=== PATIENT | male | born 1965 | race Caucasian/White ===

== ENCOUNTER 2018-09-15 17:25 | Emergency (ER) | payer MEDICAID ==
[~2018-09-15] VITALS: Ht 190.5 cm; Wt 117.4 kg
[2018-09-15 17:32] VITALS: Ht 190.5 cm; Wt 117.4 kg
[2018-09-15] MEDS ORDERED: ONDANSETRON (ODT) 4 MG TAB ODT STA (20:20)
[2018-09-15] MEDS ORDERED: morphine 4 MG/ML VIAL IM STA (20:20)
[2018-09-15] MEDS ORDERED: HYDROCODONE/APAP (10/325) TAB PO ONE (20:30)
[2018-09-15] MEDS ORDERED: TRAM50TA2 PO (21:35)
[2018-09-15] MEDS ORDERED: AMOX1TAB9 PO (21:35)
[2018-09-15 21:56] VITALS: BP 145/84; PULSE 61; RESP 20
--- NOTE | 2018-09-16 02:00 | ERD ---
ER Documentation Chief Complaint Chief Complaint L lower dental pain, states taking Amoxicillin and Ibuprofen with no relief HPI History of Present Illness: Patient coming in today with complaint of dental pain. Patient reports going to dentist yesterday and given amoxicillin and ibuprofen. Patient reports compliance with medications as prescribed, with no relief of pain. Reports pain is worsened. Patient denies systemic signs of infection including fever, chills, altered mental status. At home pharmacological/nonpharmacological treatment for symptoms: Patient reports using ice cold water to help decrease pain Denies social concerns; Denies recent foreign travel ROS All systems reviewed and are negative except as per history of present illness. Medications Home Meds Active Scripts Tramadol HCl (Tramadol HCl) 50 Mg Tablet, 50 MG PO Q6 PRN for PAIN LEVEL 6-10, #8 TAB Prov:MARY ANN ARMENDARIZ NP 09/15/18 Amoxicillin/Potassium Clav (Amox-Clav 500-125 mg Tablet) 500-125 mg Tab, 1 TAB PO Q8 for DENTAL PAIN ANTIBIOTICS for 10 Days, #30 TAB Prov:MARY ANN ARMENDARIZ NP 09/15/18 Allergies Allergies: Coded Allergies: No Known Allergy (Unverified , 09/15/18) PMhx/Soc Medical and Surgical Hx: pt denies Medical Hx, pt denies Surgical Hx Hx Alcohol Use: No Hx Substance Use: No Hx Tobacco Use: No Smoking Status: Never smoker FmHx Family History: No diabetes Physical Exam Vitals Vital Signs Date Temp Pulse Resp B/P (MAP) Pulse Ox O2 O2 Flow FiO2 Time Delivery Rate 09/15/18 61 20 145/84 100 Room Air 21:56 (104) 09/15/18 98.5 61 18 162/87 97 17:32 (112) Physical Exam Const: No acute distress Head: Atraumatic Eyes: Normal Conjunctiva ENT: Normal External Ears, Nose and Mouth. Tenderness to palpation to tooth #17, no fluctuance to gumline. Neck: Full range of motion. No meningismus. Resp: Clear to auscultation bilaterally Cardio: Regular rate and rhythm, no murmurs Abd: Soft, non tender, non distended. Normal bowel sounds Skin: No petechiae or rashes Back: No midline or flank tenderness Ext: No cyanosis, or edema Neur: Awake and alert Psych: Normal Mood and Affect Results 24 hrs Current Medications Medications Dose Sig/Freddie Start Time Status Last (Trade) Ordered Route PRN Stop Time Admin Dose Reason Admin 1 tab ONCE ONCE 09/15/18 DC 09/15/18 Acetaminophen PO 20:30 20:30 / 09/15/18 20:31 Hydrocodone Bitart ([place] ()) Morphine 4 mg ONCE STAT 09/15/18 DC 09/15/18 Sulfate IM 20:20 20:31 (morphine) 09/15/18 20:22 Ondansetron 4 mg ONCE STAT 09/15/18 DC 09/15/18 HCl (Zofran ODT 20:20 20:30 Odt) 09/15/18 20:22 Procedures/MDM ED course includes a thorough examination and history. Medications: [place] and IM morphine (morphine given due to severe leg pain, patient with grimacing and blood pressure) Imaging: ----- Labs:----- Low suspicion for life-threatening medical emergency. Low suspicion for HEENT or dental emergency that requires hospitalization or immediate intervention. Otherwise healthy patient presenting with constellation of symptoms likely representing uncomplicated dental pain possibly secondary to infection as characterized by history, physical exam findings. Patient hemodynamically stable, afebrile. No respiratory distress, otherwise relatively well appearing and nontoxic. Patient educated on diagnoses, prescriptions, follow-up care, return precautions. Strict return precautions given for worsening condition; questions answered discharge. Patient educated on changing antibiotics from amoxicillin to Augmentin. Patient verbalizes understanding to DC amoxicillin. Patient verbalized understanding to continue ibuprofen for pain/inflammation and to take tramadol as needed for moderate to severe pain. Patient reports decrease in pain after medication administration during ER visit; pain was 10/10 currently 5/10. Disposition for discharge with followup in 2 days with PCP/clinic. Departure Diagnosis: Primary Impression: Toothache Condition: Stable Patient Instructions: Dental Pain Referrals: COMMUNITY CLINICS YOU HAVE RECEIVED A MEDICAL SCREENING EXAM AND THE RESULTS INDICATE THAT YOU DO NOT HAVE A CONDITION THAT REQUIRES URGENT TREATMENT IN THE EMERGENCY DEPARTMENT. FURTHER EVALUATION AND TREATMENT OF YOUR CONDITION CAN WAIT UNTIL YOU ARE SEEN IN YOUR DOCTORS OFFICE WITHIN THE NEXT 1-2 DAYS. IT IS YOUR RESPONSIBILITY TO MAKE AN APPOINTMENT FOR FOLOW-UP CARE. IF YOU HAVE A PRIMARY DOCTOR --you should call your primary doctor and schedule an appointment IF YOU DO NOT HAVE A PRIMARY DOCTOR YOU CAN CALL OUR PHYSICIAN REFERRAL HOTLINE AT IF YOU CAN NOT AFFORD TO SEE A PHYSICIAN YOU CAN CHOSE FROM THE FOLLOWING [facility] [address] [place] [address] [facility] [place] [address] [facility] [address] [facility] [address] [facility]. [facility]. [address] [facility] [facility] YOU HAVE RECEIVED A MEDICAL SCREENING EXAM AND THE RESULTS INDICATE THAT YOU DO NOT HAVE A CONDITION THAT REQUIRES URGENT TREATMENT IN THE EMERGENCY DEPARTMENT. FURTHER EVALUATION AND TREATMENT OF YOUR CONDITION CAN WAIT UNTIL YOU ARE SEEN IN YOUR DOCTORS OFFICE WITHIN THE NEXT 1-2 DAYS. IT IS YOUR RESPONSIBILITY TO MAKE AN APPOINTMENT FOR FOLOW-UP CARE. IF YOU HAVE A PRIMARY DOCTOR --you should call your primary doctor and schedule and appointment IF YOU DO NOT HAVE A PRIMARY DOCTOR YOU CAN CALL OUR PHYSICIAN REFERRAL HOTLINE AT . IF YOU CAN NOT AFFORD TO SEE A PHYSICIAN YOU CAN CHOSE FROM THE FOLLOWING [facility] INSTITUTIONS: [facility] [address] [place] [address] [facility] [address] [place] [address] [facility] [address] [place] [address] [facility] DENT[facility] ([facility] walk in clinic) Additional Instructions: Thank you very much for allowing us to participate in your care. Your health and safety is our top priority at [facility]. Call your primary care doctor/DENTIST TOMORROW for an appointment during the next 2-4 days and bring all the information and medications prescribed. Have prescriptions filled and follow precisely the directions on the label. If the symptoms get worse and your provider is unavailable, return to the Emergency Department immediately. MARY ANN ARMENDARIZ NP Sep 16, 2018 02:00
== END 2018-09-15 22:00 | disposition home or self-care (01) ==
LOC: FTE 17:25
DX: K08.89 Other specified disorders of teeth and supporting structures (principal)
CPT/HCPCS: 96372; J2270; Z7502; Z7610

== ENCOUNTER 2019-02-19 22:36 | Inpatient (IN) | payer MEDICAID ==
[~2019-02-19] VITALS: Ht 185.4 cm; Wt 117.5 kg
[~2019-02-19 22:36] MED LIST: AMOX1TAB9 PO; ATOR10TA65 PO; BEN25 PO; CEPH-443 PO; PRED20TA PO; SULF1TAB31 PO; TRAM50TA2 PO; Work Note
[2019-02-19 22:49] VITALS: Ht 185.4 cm; Wt 117.5 kg
[2019-02-20] MEDS ORDERED: LEVOFLOXACIN 750MG/D5W (PMX) 150 ML IVPB ONE (03:00)
[2019-02-20] MEDS ORDERED: NACL 0.9% 3 ML SYG IV SCH (03:00)
[2019-02-20] MEDS ORDERED: ONDANSETRON 4 MG INJ IV PRN (03:00)
[2019-02-20] MEDS ORDERED: VANCOMYCIN IV PER PHARMACY XX SCH (03:00)
[2019-02-20] MEDS ORDERED: VANCOMYCIN 1 GM (PMX) 250 ML IVPB ONE (03:00)
[2019-02-20] MEDS ORDERED: ACETAMINOPHEN 325 MG TAB PO PRN (03:00)
[2019-02-20] MEDS ORDERED: DOCUSATE SODIUM 100 MG CAP PO PRN (03:00)
[2019-02-20] MEDS ORDERED: BISACODYL (EC) 5 MG TAB PO PRN (03:00)
[2019-02-20] MEDS ORDERED: HYDROCODONE/APAP (5/325) TAB PO PRN (03:00)
[2019-02-20 03:50] VITALS: BP 127/78; PULSE 60; RESP 18
[2019-02-20] MEDS ORDERED: VANCOMYCIN HCL 2 GM in SOD CHLORIDE 0.9% 500 ML IVPB SCH (04:00)
[2019-02-20 08:00] VITALS: BP 124/79; PULSE 60; RESP 20
[2019-02-20] MEDS: ENOXAPARIN 40 MG/0.4 ML SYG SC SCH (08:43)
[2019-02-20 14:00] VITALS: BP 114/68; PULSE 59; RESP 16
[2019-02-20] MEDS: VANCOMYCIN 1.5 GM/NS 250 ML 250 ML IVPB SCH (16:58)
[2019-02-20] MEDS ORDERED: ATORVASTATIN 10 MG TAB ONE (19:33)
[2019-02-20 20:34] VITALS: BP 117/72; PULSE 52; RESP 18
[2019-02-20] MEDS: ATORVASTATIN 10 MG TAB PO SCH (20:51)
[2019-02-21 02:39] VITALS: BP 116/70; PULSE 53; RESP 18
[2019-02-21] MEDS: VANCOMYCIN 1.5 GM/NS 250 ML 250 ML IVPB SCH ×2 (04:04→17:00)
[2019-02-21 08:00] VITALS: BP 110/62; PULSE 84; RESP 20
[2019-02-21] MEDS: DOCUSATE SODIUM 100 MG CAP PO SCH ×2 (08:34→21:21)
[2019-02-21] MEDS: ENOXAPARIN 40 MG/0.4 ML SYG SC SCH (08:34)
[2019-02-21 14:00] VITALS: BP 108/66; PULSE 96; RESP 20
[2019-02-21 19:51] VITALS: BP 103/64; PULSE 52; RESP 18
[2019-02-21] MEDS: ATORVASTATIN 10 MG TAB PO SCH (21:21)
[2019-02-22 02:02] VITALS: BP 103/65; PULSE 53; RESP 20
[2019-02-22] MEDS ORDERED: VANCOMYCIN HCL 1.75 GM in SOD CHLORIDE 0.9% 500 ML IVPB SCH (05:00)
[2019-02-22 08:00] VITALS: BP 107/67; PULSE 55; RESP 20
[2019-02-22] MEDS: DOCUSATE SODIUM 100 MG CAP PO SCH (08:26)
[2019-02-22] MEDS: ENOXAPARIN 40 MG/0.4 ML SYG SC SCH (08:27)
[2019-02-22 14:00] VITALS: BP_SYST 110; BP_SYST 118; BP_DIAS 79; BP_DIAS 80; PULSE 64; PULSE 84; RESP 20
== END 2019-02-22 15:40 | disposition home or self-care (01) | DRG 603 ==
LOC: E/R 22:36 → PP2 02-20 02:50 → EDBEDREQ 02-20 03:23 → OBSVTOIN 02-21 15:53
PROVIDERS: ADMIT Family Medicine; ATTEND Family Medicine
DX: L03.116 Cellulitis of left lower limb (principal); E78.5 Hyperlipidemia, unspecified; E66.9 Obesity, unspecified; Z68.34 Body mass index [BMI] 34.0-34.9, adult
CPT/HCPCS: 80048; 80053; 80061; 80202; 83036; 83735; 84145; 84443; 85025; 85610; 85651; 85730; 86140; 93971; G0378; J1650; J1956; J3370; J7040